=== PATIENT | female | born 1950 ===

== ENCOUNTER 2021-05-09 11:25 | Inpatient (IN) | payer OTHER ==
[~2021-05-09] VITALS: Ht 162.6 cm; Wt 54.4 kg
[2021-05-09] MEDS ORDERED: VERELAN240 MG PO (15:01)
[2021-05-13] MEDS ORDERED: DSS100 MG (13:04)
[2021-05-13] MEDS ORDERED: SIMVASTATIN10 MG (13:04)
[2021-05-13] MEDS ORDERED: LEVOTHYROXINE25 MC1 (13:04)
== END 2021-05-17 12:52 | disposition home or self-care (01) | DRG 330 ==
LOC: SURH 05-13 11:45 → O/R 05-13 12:42 → SURH 05-13 13:47
PROVIDERS: ADMIT Colon & Rectal Surgery; ATTEND Colon & Rectal Surgery
PROC: 0DBP4ZZ Excision of Rectum, Percutaneous Endoscopic Approach (ICD-10-PCS; 2021-05-13)
PROC: 07BB4ZZ Excision of Mesenteric Lymphatic, Percutaneous Endoscopic Approach (ICD-10-PCS; 2021-05-13)
PROC: 07BC4ZZ Excision of Pelvis Lymphatic, Percutaneous Endoscopic Approach (ICD-10-PCS; 2021-05-13)
PROC: 0UQG4ZZ Repair Vagina, Percutaneous Endoscopic Approach (ICD-10-PCS; 2021-05-13)
PROC: 0UB94ZX Excision of Uterus, Percutaneous Endoscopic Approach, Diagnostic (ICD-10-PCS; 2021-05-13)
PROC: 0DUU47Z Supplement Omentum with Autologous Tissue Substitute, Percutaneous Endoscopic Approach (ICD-10-PCS; 2021-05-13)
PROC: 0DTN4ZZ Resection of Sigmoid Colon, Percutaneous Endoscopic Approach (ICD-10-PCS; principal; 2021-05-13 18:45)
DX: C19 Malignant neoplasm of rectosigmoid junction (principal); K92.2 Gastrointestinal hemorrhage, unspecified; D25.0 Submucous leiomyoma of uterus; R59.0 Localized enlarged lymph nodes; I10 Essential (primary) hypertension; Z20.822 Contact with and (suspected) exposure to COVID-19

== ENCOUNTER 2022-06-23 09:00 | Inpatient (IN) | payer OTHER ==
[~2022-06-23] VITALS: Ht 152.4 cm; Wt 58.5 kg
[~2022-06-23 09:00] MED LIST: DSS100 MG; LEVOTHYROXINE25 MC1; SIMVASTATIN10 MG; VERELAN240 MG PO
[2022-06-25] MEDS ORDERED: NAPROXEN500 MG (08:13)
== END 2022-07-01 13:16 | disposition home or self-care (01) | DRG 329 ==
LOC: OB/GYN 06-25 06:06 → SURH 06-25 06:06 → O/R 06-25 06:06 → SURG 06-25 09:00 → OB/GYN 06-25 15:40 → SURH 06-26 08:20
PROVIDERS: Obstetrics & Gynecology Gynecologic Oncology; ADMIT Colon & Rectal Surgery; ATTEND Colon & Rectal Surgery
PROC: 0DN80ZZ Release Small Intestine, Open Approach (ICD-10-PCS; 2022-06-25)
PROC: 0WQF0ZZ Repair Abdominal Wall, Open Approach (ICD-10-PCS; 2022-06-25)
PROC: 0DJD8ZZ Inspection of Lower Intestinal Tract, Via Natural or Artificial Opening Endoscopic (ICD-10-PCS; 2022-06-25)
PROC: 0UT90ZZ Resection of Uterus, Open Approach (ICD-10-PCS; 2022-06-25)
PROC: 0UJD4ZZ Inspection of Uterus and Cervix, Percutaneous Endoscopic Approach (ICD-10-PCS; 2022-06-25)
PROC: 0UT70ZZ Resection of Bilateral Fallopian Tubes, Open Approach (ICD-10-PCS; 2022-06-25)
PROC: 0UT20ZZ Resection of Bilateral Ovaries, Open Approach (ICD-10-PCS; 2022-06-25)
PROC: 07BC0ZZ Excision of Pelvis Lymphatic, Open Approach (ICD-10-PCS; 2022-06-25)
PROC: 07BD0ZZ Excision of Aortic Lymphatic, Open Approach (ICD-10-PCS; 2022-06-25)
PROC: 0DQB4ZZ Repair Ileum, Percutaneous Endoscopic Approach (ICD-10-PCS; principal; 2022-06-25 09:45)
PROC: 0DQN0ZZ Repair Sigmoid Colon, Open Approach (ICD-10-PCS; 2022-06-25 09:45)
DX: Z43.2 Encounter for attention to ileostomy (principal); K63.1 Perforation of intestine (nontraumatic); C19 Malignant neoplasm of rectosigmoid junction; C78.6 Secondary malignant neoplasm of retroperitoneum and peritoneum; C79.63 Secondary malignant neoplasm of bilateral ovaries; C79.82 Secondary malignant neoplasm of genital organs; K91.71 Accidental puncture and laceration of a digestive system organ or structure during a digestive system procedure; Z20.822 Contact with and (suspected) exposure to COVID-19; K66.0 Peritoneal adhesions (postprocedural) (postinfection); K45.8 Other specified abdominal hernia without obstruction or gangrene; K66.8 Other specified disorders of peritoneum